=== PATIENT | male | born 1995 | race Caucasian/White ===

== ENCOUNTER 2016-12-18 19:17 | Emergency (ER) | payer OTHER ==
[~2016-12-18] VITALS: Ht 177.8 cm; Wt 76.3 kg
[2016-12-18 19:48] VITALS: BP 141/67; PULSE 67; RESP 16; TEMP 98.6; O2SAT 99
[2016-12-18] MEDS ORDERED: LEXA10TA PO (20:14)
[2016-12-18] MEDS ORDERED: DOXYCYCLINE HYCLATE 100 MG CAP PO ONE (20:45)
[2016-12-18] MEDS ORDERED: TETANUS/DIPHTHERIA TOXOID ADULT 0.5 ML VIAL IM ONE (20:45)
[2016-12-18] MEDS ORDERED: DOXY100C PO (21:09)
--- NOTE | 2016-12-18 21:09 | PD ---
HPI Chief Complaint: Laceration/Skin Injury Time Seen by Provider: 20:45 Travel History International Travel<30 days: No Contact w/Intl Traveler<30days: No Traveled to known affect area: No History of Present Illness HPI 21-year-old male presents to the emergency room for evaluation of a laceration to his left medial foot just prior to arrival. Patient was canoeing; he had to step out of the canoe to grab his phone and cut his foot on an oyster bed. He applied pressure and came straight to the emergency room. He has been unable to wash it or taken anything for pain. Denies significant pain, loss range of motion, or paresthesias. Unknown last tetanus. PFS Past Medical History Anxiety: Yes Depression: Yes Past Surgical History Other Surgery: Yes (HAND SURG) Social History Alcohol Use: Yes Tobacco Use: No Substance Use: No Allergies-Medications (Allergen,Severity, Reaction): Coded Allergies: No Known Allergies (Unverified , 12/18/16) Reported Meds & Prescriptions Reported Meds & Active Scripts Active Reported Lexapro (Escitalopram Oxalate) 10 Mg Tab 10 Mg PO DAILY Review of Systems Except as stated in HPI: all other systems reviewed are Neg Physical Exam Narrative GENERAL: Well-nourished, well-developed male in no acute distress. Afebrile. Ambulatory. SKIN: Focused skin assessment warm/dry. There is a 4 cm well-approximated, superficial laceration to the left medial foot, right at the arch. HEAD: Normocephalic. EYES: No scleral icterus. No injection or drainage. NECK: Supple, trachea midline. No JVD or lymphadenopathy. CARDIOVASCULAR: Regular rate and rhythm without murmurs, gallops, or rubs. RESPIRATORY: Breath sounds equal bilaterally. No accessory muscle use. PSYCHIATRIC: No delusional thought processes. No hallucinations. Data Data Last Documented VS Vital Signs Date Time Temp Pulse Resp B/P Pulse Ox O2 Delivery O2 Flow Rate FiO2 12/18/16 19:48 98.6 67 16 141/67 99 Orders Tetanus/Diphtheria Tox Adult (Tetanus/Di (12/18/16 20:45) Doxycycline (Vibramycin) (12/18/16 20:45) MDM Medical Decision Making Medical Screen Exam Complete: Yes Emergency Medical Condition: Yes Medical Record Reviewed: Yes Differential Diagnosis Laceration, abrasion, contusion, skin tear Narrative Course 21-year-old male presents to the emergency room for evaluation of a laceration to the left medial foot that occurred just prior to arrival. Patient cut himself on an oyster bed. Tetanus was updated and he was given his first dose of doxycycline in the emergency room. He'll be discharged with prescription for the same. Wound was thoroughly irrigated and repaired, see procedure note for details. Discharged with wound care instructions and told to follow-up with her primary care physician or return for worsening symptoms. He understands and agrees to plan. Procedures Procedure Narrative LACERATION LOCATION: Left medial foot LENGTH: 4 cm NUMBER OF STITCHES/VEENA: 6 simple interrupted REPAIR: The area of the laceration was prepped with Betadine and sterilely draped. The laceration was infiltrated with 1% lidocaine with epinephrine. The wound was copiously irrigated and explored without evidence of foreign body , tendon injury or neurovascular injury. The wound was closed using 5-0 Prolene. This was a single layer repair. A sterile dressing was applied. The patient was advised to keep the dressing clean and dry. Patient tolerated the procedure well. Diagnosis Primary Impression: Foot laceration Qualified Code: S91.312A - Foot laceration, left, initial encounter Referrals: Primary Care Physician Patient Instructions: General Instructions, Laceration (ED) Additional Instructions: Rest and drink plenty of fluids. Keep wound clean and dry. Apply triple antibiotic ointment daily. Stitches out in 10 days. Take ibuprofen with food as directed, as needed for pain. Follow-up with a primary care physician. Return to the emergency room for worsening symptoms. Med/Other Pt SpecificInfo: Prescription(s) given Disposition: 01 DISCHARGE HOME Condition: Stable Ju Gibbons Dec 18, 2016 21:09
[2016-12-18 21:25] VITALS: BP 135/68
== END 2016-12-18 21:28 | disposition home or self-care (01) ==
LOC: PHED 19:17 → PHEFT 21:28
DX: S91.312A Laceration without foreign body, left foot, initial encounter (principal); Z23 Encounter for immunization; Z86.59 Personal history of other mental and behavioral disorders; W45.8XXA Other foreign body or object entering through skin, initial encounter; Y93.89 Activity, other specified
CPT/HCPCS: 12002; 90471; 90714